=== PATIENT | female | born 2000 | race Caucasian/White ===

== ENCOUNTER 2025-05-24 13:01 | Outpatient (AMB) | payer MEDICAID, SELFPAY ==
--- NOTE | 2025-05-24 13:10 | AMB.OBINITIA ---
Vital Signs 05/24/25 13:11 Height 1.52 m Height Method Stated Weight 62.142 kg Weight Measurement Method Standing Scale BMI 26.7 BP 110/66 Blood Pressure Source Automatic Cuff Blood Pressure Location Right Upper Arm Position Sitting Respiration 18 Pulse 81 Pulse Source Monitor Temp 97.6 F Temp Source Temporal Artery Scan Pulse Oximetry (%) 98 Oxygen Delivery Method Room Air Allergies/Home Meds Allergies & Medications Allergies No Known Allergies Allergy (Verified 05/24/25 13:12) Medication Reconciliation No Known Home Medications 05/24/25 [History Confirmed 05/24/25] Intake Visit Data Collection New Patient or Established: New Patient (never been to [facility]) Reason for Visit:: OBI TRANSFER Seen by Clinical Staff ONLY (RN/MA): No Patient Resource Coordinator Required: No Do You Feel Safe at Home: Yes Authorities Contacted: N/A PCP or OBGYN visit in last 3 months: Yes Hx Now: Yes Are you currently on any form of Control: No Last menstrual period: 10/23/24 Pain Present Currently: No Pain Scale Used: Martin-Vincent/Numerical Pain scale:: 0 Smoking Status Smoking Status: Never smoker Immunizations Flu Vaccine in the Last 12 Months: No Flu Vaccine Exclusion Criteria: No Exclusion Criteria Questionnaires Covid-19 Vaccine Questionnaire Has patient been vacinated for Covid-19 Have you been vacinated for Covid-19: No PHQ-9 PHQ-2 Over the last 2 weeks, how often have you been bothered by any of the following problems? 1. Little interest or pleasure in doing things: not at all 2. Feeling down, depressed, or hopeless: not at all Total score: 0 PHQ-9 3. Trouble falling or staying asleep, or sleeping too much: Not at all 4. Feeling tired or having little energy: Not at all 5. Poor appetite or overeating: Not at all 6. Feeling bad about yourself - or that you are a failure or have let yourself or your family down: Not at all 7. Trouble concentrating on things, such as reading the newspaper or watching television: Not at all 8. Moving or speaking so slowly that other people could have noticed? - Or the opposite - being so fidgety or restless that you have been moving around a lot more than usual: not at all 9. Thoughts that you would be better off or of hurting yourself in some way: Not at all Total score: 0 If you checked off any problems, how difficult have these problems made it for you to do your work, take care of things at home, or get along with other people?: not difficult at all Source: Developed by Drs. Lui De Guzman, Jhoana Blake, Minesh Diallo and colleagues, with an educational maritza from [employer]. Depression screen completed yes Social History Living Situation History Marital Status: Lives With: Family Housing: House Tobacco History Smoking Status: Never smoker Second Hand Smoke Exposure: No Alcohol History Alcohol Intake: Never Domestic Abuse History Do You Feel Safe at Home: Yes History of Present Illness HPI Narrative 24-year-old 1 para 0. Here for OB I/ob transfer from Dr Lopez with records. Last. Close October 23, 2024. This gives the EDC by LMP of July 30, 2024. Patient had a 10-week ultrasound December 07, 2024 and this gives her EDC of June 29, 2025. And then patient also had a 22-week anatomy scan in December and thus also confirm dates. Denies social habits. Denies surgery. Denies chronic illness. Patient is O+, antibody screen negative, RPR nonreactive,, hepatitis B negative, hep C negative, HIV negative, her GC and Chlamydia were negative. Her AFP/NIPT and carrier screens were all negative. She had a normal 1 hour GTT and her RPR at 28 weeks was also negative. A1c is 5.1. Patient is a little bit anemic at 34 so she is taking iron. Reports movement. Denies leaking or bleeding or cramps OB Initial Visit OB Flowsheet OB Flowsheet Initial Weight: Not Recorded Date <del>?</del> EGA Weight BP Alb Glu CTX Pres Fundal ht FHR Mov Dilation Station Effacement Hx Notes Visit Note 05/24/25 <del>?</del> 34w 3d 62.142 kg 110/66 absent cephalic 34 145 active OB transfer from Dr Lopez with records. poor date. EDC 06/29/25 by 10 week sono. OB labs wnl, No GDM. Reports good movement. Denies leaking, bleeding, contractions Menstrual History Menstrual reliability: definite Flow: normal Menstrual regularity: regular Monthly: Yes Age at menarche: 13 On control pills at conception: No OB History : 1 Infection History & Risk Evaluation History of STDs: none Patient or partner has history of Genital Herpes: No Genetic Screening & History Genetic Screening/Teratology Counseling - Includes patient, baby's father, or anyone in either family with: 1. Patient's age 35 years or older as of estimated date of delivery: No 2. Thalassemia (Chinese, Anguillan, Mediterranean, or Background); MCV less than 80: No 3. Neural Tube Defect (Meningomyelocele, Spina Bifida, or Anencephaly): No 4. Congenital Heart Defect: No 5. Down Syndrome: No 6. Zan-Sachs (Ashkenazi Amish, Cajun, Citizen Of The [place] Afghan): No 7. Adria Disease (Ashkenazi Amish): No 8. Familial Dysautonomia (Ashkenazi Amish): No 9. Sickle Cell Disease or Trait (): No 10. Hemophilia or other blood disorders: No 11. Muscular Dystrophy: No 12. Cystic Fibrosis: No 13. [place]'s Chorea: No 14. Mental Retardation/Autism: No 15. Other inherited genetic or chromosomal disorder: No 16. Maternal Metabolic Disorder (EG,TYPE 1 Diabetes, PKU): No 17. Patient or baby's father had a child with defects not listed above: No 18. Recurrent loss or a stillbirth: No 19. Medications (including supplements, vitamins, herbs or otc drugs)/illicit/recreational drugs/alcohol since last menstrual period: No 20. Any other: No Infection History 1. Live with someone with TB or exposed to TB: No Other (see comments) Source: [employer] Review of Systems Review of Systems Systems Reviewed: All systems reviewed, normal except as documented Exam General Limitations: no limitations General Appearance: alert, in no apparent distress, comfortable, cooperative, healthy appearing, well developed and well groomed Head Head exam: atraumatic, normocephalic and normal inspection Chest Chest inspection: Present normal inspection and symmetric chest wall rise Resp Respiratory exam: Present normal lung sounds bilaterally Card Cardiovascular exam: Present regular rate, normal rhythm and normal heart sounds Abdominal Abdominal exam: Present soft and normal bowel sounds Psych Psychiatric exam: Present normal affect and normal mood Office Procedures OBC Clinic LOC & Office Proc's Nursing/Assessment Patient Status: Initial/New Patient OB Clinic Nursing Assessment: Medication Reconciliation, Update PMH in EMR and Vital Signs OB Clinic Coordination of Care: Complex Care and Chronic Disease 1-5, Education Complex Pt/Fam, Consent,records obtained, informed consent, Lab and Imaging orders, Results/Orders obtained and Staff clarify orders Special Needs: Heart tones New Patient Charge New Patient Point Assignment: [id number] New Patient Point Charge: DRIP MOLDER Level 4 ([id number]) Assessment & Plan Diagnosis / Problem List (1) Encounter for supervision of high risk in third trimester, antepartum: Status: Acute Plan Reviewed labs and sono today. Discussed labor precautions. Continue prenatals. Increase fluids. GBS next visit. Return in 2 weeks OB check Additional Plan Follow Up: 2 Weeks (obc)
[2025-05-24 13:11] VITALS: BP 110/66; PULSE 81; RESP 18; TEMP 36.4; O2SAT 98; BMI 26.7
== END 2025-05-24 13:22 | disposition home or self-care (01) ==
LOC: HODSOBC 13:01
PROVIDERS: PCP Family Medicine; Referring Provider Family Medicine; Supervising Provider Advanced Practice Midwife; Visit Provider Advanced Practice Midwife
DX: O09.93 Supervision of high risk pregnancy, unspecified, third trimester (principal); Z3A.34 34 weeks gestation of pregnancy
CPT/HCPCS: 99204; G0463

== ENCOUNTER 2025-06-05 14:18 | Outpatient (AMB) | payer MEDICAID, SELFPAY ==
--- NOTE | 2025-06-05 14:24 | OBCLNT_ITS ---
Vital Signs 06/05/25 14:25 Height 1.52 m Height Method Stated Weight 62.823 kg Weight Measurement Method Standing Scale BMI 27.1 BP 118/68 Blood Pressure Source Automatic Cuff Blood Pressure Location Left Upper Arm Position Sitting Respiration 18 Pulse 94 Pulse Source Monitor Temp 97.7 F Temp Source Oral Pulse Oximetry (%) 98 Oxygen Delivery Method Room Air Allergies/Home Meds Allergies & Medications Allergies No Known Allergies Allergy (Verified 06/05/25 14:30) Medication Reconciliation ferrous sulfate 325 mg (65 mg iron) tablet 325 mg PO BID #60 tabs 06/05/25 [Rx] vitamins-iron fumarate 66 mg iron-folic acid 1 mg tablet tab PO 06/05/25 [History Confirmed 06/05/25] Immunizations Immunizations Flu Vaccine in the Last 12 Months: No Flu Vaccine Exclusion Criteria: Refused by Patient Care OB Visit Log OB Flowsheet Initial Weight: Not Recorded Date -?-?-?-?-?-?-?-?-?-?-?-?- EGA Weight BP Alb Glu CTX Pres Fundal ht FHR Mov Dilation Station Effacement Hx Notes Visit Note 05/24/25 -?-?-?-?-?-?-?-?-?-?-?-?- 34w 3d 62.142 kg 110/66 absent cephalic 34 145 active OB transfer from Dr Lopez with records. poor date. EDC 06/29/25 by 10 week sono. OB labs wnl, No GDM. Reports good movement. Denies leaking, bleeding, contractions 06/05/25 -?-?-?-?-?-?-?-?-?-?-?-?- 36w 1d 62.823 kg 118/68 absent cephalic 36 145 active Reports good movement. Denies leaking, bleeding, contractions. No OB complaints GBS today. Refilled iron. Discussed labor precautions. Kick count twice a day. Discussed danger signs and symptoms return to [facility] check JONI Calculator Estimated Delivery Date Method Current WG Current Estimate 07/02/25 Ultrasound #1 36w 1d Other Estimates 07/30/25 LMP (Certain) 32w 1d 07/03/25 Ultrasound #2 36w 0d 07/02/25 Manual 36w 1d final joni: 06/06 02/27 Notes Visit Date: 05/24/25 Last Updated by: Reba Kang CNM OB panel: O+,abs-, rpr;;nr, rub imm, hbsag-, hiv-,HC-, GC/CT-, 1 hr gtt: 111, AFP/NIPT,carrier screen-, 3rd tri lab wnl 24 yo . sono: 12/07/24: 10w3; EDC: 06/29/25 Office Procedures OBC Clinic LOC & Office Proc's Nursing/Assessment Patient Status: Established Patient OB Clinic Nursing Assessment: Medication Reconciliation, Update PMH in EMR and Vital Signs OB Clinic Coordination of Care: Complex Care and Chronic Disease 1-5, Consent,records obtained, informed consent, Education Simp Pt/Fam, 1 Ins Authorization, Lab and Imaging orders, Results/Orders obtained and Staff clarify orders Special Needs: Heart tones Miscellaneous Interventions: Culture Specimen Collection Established Patient Charge Established Patient Point Assignment: 165 Established Patient Point Charge: EP Level 5 (160-above) Assessment & Plan Diagnosis / Problem List (1) Encounter for supervision of high risk in third trimester, antepartum: Status: Acute Plan Discussed labor precautions. Kick count twice a day. Discussed ER precautions. GBS today Additional Plan Follow Up: 1 Week (obc)
[2025-06-05 14:25] VITALS: BP 118/68; PULSE 94; RESP 18; TEMP 36.5; O2SAT 98; BMI 27.1
== END 2025-06-05 14:58 | disposition home or self-care (01) ==
LOC: HODSOBC 14:18
PROVIDERS: Supervising Provider Advanced Practice Midwife; Visit Provider Advanced Practice Midwife
DX: O09.93 Supervision of high risk pregnancy, unspecified, third trimester (principal); Z3A.36 36 weeks gestation of pregnancy; Z36.85 Encounter for antenatal screening for Streptococcus B; Z28.21 Immunization not carried out because of patient refusal
CPT/HCPCS: 99215; G0463

== ENCOUNTER 2025-06-16 13:48 | Outpatient (AMB) | payer MEDICAID, SELFPAY ==
[2025-06-16 14:07] VITALS: BP 113/67; PULSE 83; RESP 16; TEMP 36.5; O2SAT 96; BMI 27.8
--- NOTE | 2025-06-16 14:07 | OBCLNT_ITS ---
Vital Signs 06/16/25 14:07 Height 1.52 m Height Method Stated Weight 64.467 kg Weight Measurement Method Standing Scale BMI 27.8 BP 113/67 Blood Pressure Source Automatic Cuff Blood Pressure Location Left Upper Arm Position Sitting Respiration 16 Pulse 83 Pulse Source Monitor Temp 97.7 F Temp Source Oral Pulse Oximetry (%) 96 Oxygen Delivery Method Room Air Allergies/Home Meds Allergies & Medications Allergies No Known Allergies Allergy (Verified 06/16/25 14:08) Medication Reconciliation ferrous sulfate 325 mg (65 mg iron) tablet 325 mg PO BID #60 tabs 06/05/25 [Rx Confirmed 06/16/25] vitamins-iron fumarate 66 mg iron-folic acid 1 mg tablet tab PO 06/05/25 [History Confirmed 06/16/25] Immunizations Immunizations Flu Vaccine in the Last 12 Months: Yes Flu Vaccine Exclusion Criteria: Refused by Patient Care OB Visit Log OB Flowsheet Initial Weight: Not Recorded Date -?-?-?-?-?-?-?-?-?-?-?-?- EGA Weight BP Alb Glu CTX Pres Fundal ht FHR Mov Dilation Station Effacement Hx Notes Visit Note 05/24/25 -?-?-?-?-?-?-?-?-?-?-?-?- 34w 3d 62.142 kg 110/66 absent cephalic 34 145 active OB transfer from Dr Lopez with records. poor date. EDC 06/29/25 by 10 week sono. OB labs wnl, No GDM. Reports good movement. Denies leaking, bleeding, contractions 06/05/25 -?-?-?-?-?-?-?-?-?-?-?-?- 36w 1d 62.823 kg 118/68 absent cephalic 36 145 active Reports good movement. Denies leaking, bleeding, contractions. No OB complaints GBS today. Refilled iron. Discussed labor precautions. Kick count twice a day. Discussed danger signs and symptoms return to [facility] check 06/16/25 -?-?-?-?-?-?-?-?-?-?-?-?- 37w 5d 64.467 kg 113/67 absent cephalic 37 135 active Fetus active. Reports good movement. Denies leaking, bleeding, contractions GBS negative. Continue iron twice a day. Kick count twice a day. Discussed labor precautions to return in a week OB check JONI Calculator Estimated Delivery Date Method Current WG Current Estimate 07/02/25 Ultrasound #1 37w 5d Other Estimates 07/30/25 LMP (Certain) 33w 5d 07/03/25 Ultrasound #2 37w 4d 07/02/25 Manual 37w 5d final joni: 06/06 02/27 Notes Visit Date: 06/16/25 Last Updated by: Reba Kang CNM GBS- Visit Date: 05/24/25 Last Updated by: Reba Kang CNM OB panel: O+,abs-, rpr;;nr, rub imm, hbsag-, hiv-,HC-, GC/CT-, 1 hr gtt: 111, AFP/NIPT,carrier screen-, 3rd tri lab wnl 24 yo . sono: 12/07/24: 10w3; EDC: 06/29/25 Office Procedures OBC Clinic LOC & Office Proc's Nursing/Assessment Patient Status: Established Patient OB Clinic Nursing Assessment: Medication Reconciliation, Update PMH in EMR and Vital Signs OB Clinic Coordination of Care: Complex Care and Chronic Disease 1-5, Consent,records obtained, informed consent, Education Simp Pt/Fam, 1 Ins Authorization, Lab and Imaging orders, Results/Orders obtained and Staff clarify orders Special Needs: Heart tones Established Patient Charge Established Patient Point Assignment: 150 Established Patient Point Charge: EP Level 4 (120-155) Assessment & Plan Diagnosis / Problem List (1) Encounter for supervision of high risk in third trimester, antepartum: Status: Acute Plan Discussed kick count twice a day. GBS is negative. Continue prenatals and iron. Increase fluids. Discussed labor precautions. Return week OB check Additional Plan Follow Up: 1 Week (obc)
== END 2025-06-16 14:50 | disposition home or self-care (01) ==
LOC: HODSOBC 13:48
PROVIDERS: Supervising Provider Advanced Practice Midwife; Visit Provider Advanced Practice Midwife
DX: O09.93 Supervision of high risk pregnancy, unspecified, third trimester (principal); Z3A.37 37 weeks gestation of pregnancy; Z28.21 Immunization not carried out because of patient refusal
CPT/HCPCS: 99214; G0463

== ENCOUNTER 2025-06-29 09:35 | Inpatient (IN) | payer MEDICAID, SELFPAY ==
[2025-06-29] VITALS (97 sets, daily range): BP systolic 100–166; BP diastolic 47–77; PULSE 63–125; RESP 18–99; TEMP 36.3–37.9; O2SAT 92–100; BMI 28.2
--- NOTE | 2025-06-29 09:53 | XR_ITS ---
Examination: Complete OB ultrasound greater than 14 weeks Date and time of exam: June 29, 2025, 1050 hours INDICATION: Leaking amniotic fluid today Findings: Viable intrauterine single fetus with single amniotic sac presentation cephalic Cardiac motion 133 bpm Placenta anterior grade 3 Medical cord insertion seen Amniotic fluid index 17.8 cm Ovaries obscured by bowel gas. Composite estimated gestational age based on BPD, head circumference, abdominal circumference, femur length is 38 weeks 0 days Estimated weight 3389 g. Survey of intracranial anatomy, spinal anatomy, abdominal anatomy, four-chamber heart performed with no abnormalities identified. Impression: Viable intrauterine gestation cephalic presentation.
[2025-06-29 10:28] LABS: Swb Mxed in Solvent 1 min? Yes
[2025-06-29 10:29] LABS: ROM Swab Mixed By: LOPEC2; Rupture of Fetal Membranes Positive (Negative)
[2025-06-29 12:53] LABS: Basophils # (Auto) 0.1 Thou/mm3 (0.0-0.2); Basophils % (Auto) 1 % (0-2.5); Eosinophils # (Auto) 0.0 Thou/mm3 (0.0-0.5); Eosinophils % (Auto) 1 % (0-10); Hematocrit 37.3 % (36.0-46.0); Hemoglobin 12.7 g/dL (12.0-16.0); Immature Granulocytes Auto 0.33 Thou/mm3 (0.00-0.00); Lymphocytes # (Auto) 1.2 Thou/mm3 (1.0-4.8); Lymphocytes % (Auto) 16 % (10-50); Mean Corpuscular HGB Conc 34.0 g/dl (31.0-37.0); Mean Corpuscular Hemoglobin 31.0 pg (25.0-35.0); Mean Corpuscular Volume 91 fL (80-100); Monocytes # (Auto) 0.5 Thou/mm3 (0.0-0.8); Monocytes % (Auto) 7 % (0-12); Neutrophils # (Auto) 5.6 Thou/mm3 (1.8-7.7); Neutrophils % (Auto) 72 % (37-80); Nucleated Red Blood Cell # 0.00 Thou/mm3 (0.00-0.00); Nucleated Red Blood Cell % 0 /100 WBC (0); Platelet Count 218 Thou/mm3 (140-440); RDW Standard Deviation 43.5 fL (36.4-46.3); Red Blood Count 4.10 Miln/mm3 (4.00-5.20); White Blood Count 7.7 Thou/mm3 (3.6-11.0)
[2025-06-29] MEDS: RINGERS LACTATED 1000 ML 1,000 ML 100 ML IV ×3 (13:07→21:45)
[2025-06-29 13:30] LABS: Syphilis Nonreactive (Nonreactive)
--- NOTE | 2025-06-29 15:56 | ESHP_ITS ---
Documentation for date of: 06/29/25 OB Labor/Induct. HPI History of Present Illness Chief complaint: Rupture of membranes : 1 Para: 0 Term pregnancies: 0 pregnancies: 0 Living children: 0 History of Abortions: Spontaneous and Elective: 0 History of Vaginal deliveries: 0 History of sections: No History of : No Date of last menstrual period: 09/22/24 JONI: 06/29/25 Gestational Age (weeks): 39 Gestational Age (days): 4 Gestational age based on last menstrual period: 40 History of present illness: 25-year-old 1 para 0 at 39 weeks and 4 days with estimated due date of 07/02/2025 which is based on first trimester ultrasound presented to labor and delivery triage with leakage of fluid and contractions. She was noted to be AmniSure positive and was admitted with a diagnosis of spontaneous rupture of membranes. Patient reports adequate movements and denies any leakage of fluid or vaginal bleeding. She received care at the [facility] clinic and prior to that she used to see Dr. Lopez from where she transferred care records were reviewed as scanned in. History of Present Adequate Care: Yes Labs Labs: Positive: Rubella Titre, Negative: RPR, Hepatitis B, HIV and Gonorrhea and Unknown: Herpes Type 1, Herpes Type 2, Group Beta Strep and Covid- 19 Past Medical History Surgical History SURGICAL: Negative Section Meds Home Medications and Allergies Home Medications ?Medication ?Instructions ?Recorded ?Confirmed ?Type vitamins-iron fumarate 66 1 tab PO QDAY 06/0506/29/25 History mg iron-folic acid 1 mg tablet Allergies Allergy/AdvReac Type Severity Reaction Status Date / Time No Known Allergies Allergy Verified 06/29/25 09:54 OB Exam Physical Exam Vital signs: Temp Pulse Resp BP Pulse Ox O2 Del Method 97.4 F 88 20 117/54 L 100 Room Air 06/29/25 13:08 06/29/25 15:27 06/29/25 13:08 06/29/25 15:27 06/29/25 11:12 06/29/25 13:08 Constitutional Constitutional: no acute distress Routine HEENT Exam Head: Present normocephalic and atraumatic Eye: Present EOMI and PERRL ENT: Present mucous membranes moist Routine Neck Exam Neck: Present supple and trachea midline Routine Cardiovascular Exam Cardiovascular: Present RRR Routine Abdominal Exam Abdominal: Present soft and normoactive bowel sounds Detailed Labor and Delivery Exam Dilation (cm): 3 Effacement (%): 50 Cervix position: mid station: -3 Consistency: firm Presentation: Vertex Baseline heart rate: 145 monitor accelerations: 15x15 monitor decelerations: None Routine Extremities Exam Extremities: Present full ROM Routine Skin Exam Skin: Present intact, dry and warm Routine Neurological Exam Neurological: Present alert, oriented X3 and CN II-XII intact Routine Psychiatric Exam Psychiatric: Present normal affect and normal thought process OB Results Labs 06/29/25 11:20 Labs: Short CBC 06/29/25 Range/Units 11:20 WBC 7.7 (3.6-11.0) Thou/mm3 Hgb 12.7 (12.0-16.0) g/dL Hct 37.3 (36.0-46.0) % Plt Count 218 (140-440) Thou/mm3 OB Assessment & Plan Assessment and Plan (1) Encounter for supervision of high risk in third trimester, antepartum: Status: Acute (2) Spontaneous rupture of membranes: Status: Acute Assessment and plan: Admit to inpatient status IV access, LR at 125 cc/h, CBC, type and screen, RPR Group B strep negative Additional forebag ruptured and internal monitors/IUPC placed Cervical ripening with misoprostol, will proceed to oxytocin when Paredes score is favorable Continuous maternal monitoring Epidural whenever desired Anticipate vaginal delivery
[2025-06-29] MEDS: Ampicillin Inj 2,000 MG in SODIUM CHLORIDE 0.9% (POP) 100 ML 200 MG IV (22:08)
[2025-06-29] MEDS: OXYTOCIN in NS 30 units 30 UNIT/500 ML BAG IV (22:42)
[2025-06-29] MEDS: GENTAMICIN/NS 80 MG IVPB 80 MG in PRE-MIXED 1 BAG 50 MG IV (22:45)
[2025-06-29] MEDS: ACETAMINOPHEN IVPB 1,000 MG/100 ML VIAL 250 MG IV (23:51)
[2025-06-30] VITALS (167 sets, daily range): BP systolic 95–137; BP diastolic 50–100; PULSE 65–151; RESP 16–20; TEMP 36.7–37.9; O2SAT 90–100
[2025-06-30] MEDS: fentaNYL CIT INJ 50 mCg/ML AMP 2ML 100 MCG IVP (00:33)
[2025-06-30] MEDS: ACETAMINOPHEN IVPB 1,000 MG/100 ML VIAL 250 MG IV (04:57)
[2025-06-30] MEDS: Ampicillin Inj 2,000 MG in SODIUM CHLORIDE 0.9% (POP) 100 ML 200 MG IV (05:18)
[2025-06-30] MEDS: RINGERS LACTATED 1000 ML 1,000 ML 100 ML IV (05:24)
[2025-06-30] MEDS: MINERAL OIL 30 ML UDC TOP (07:17)
[2025-06-30] MEDS: OXYTOCIN in NS 20 units 20 UNIT/1,000 ML BAG 125 UNIT IV (07:37)
[2025-06-30] MEDS: BENZO/LANO/ALOE (Dermoplast) 60 GM CAN 1 SPRAY TOP (07:44)
[2025-06-30] MEDS: IBUPROFEN TAB 400 MG TABLET 800 MG PO (08:46)
[2025-06-30] MEDS: ceFAZolin/D5W 2 GM IV 2 GM/100 ML BAG IV ×2 (08:47→16:21)
--- NOTE | 2025-06-30 10:08 | OBDSUM_ITS ---
Data ([place]) Data Hx Section: No Maternal Blood Type: O Pos Rubella Titre: Positive RPR: Non-reactive Labs: Negative: RPR, Hepatitis B, HIV, Chlamydia, Gonorrhea and Group Beta Strep : 1 Term: 0 : 0 Livin Abortions: Spontaneous & Theraputic: 0 Delivery Data ([place]) Labor Data Initiation of labor: Induction Induction/Augmentation Agent: Cytotec-PO and Pitocin ROM date: 06/29/25 ROM time: 09:00 Amniotic membrane rupture type: Spontaneous Amniotic fluid description: Clear Delivery Data EDC: 06/29/25 EDC calculated by:: LMP/early US confirmation Date of arrival to unit: 06/29/25 Onset of labor date: 06/30/25 Onset of labor time: 01:20 Complete dilation date: 06/30/25 Complete dilation time: 06:45 [place] delivery date: 06/30/25 [place] delivery time: 07:36 Gestational age (weeks): 40 Gestational age (days): 1 Placenta delivery date: 06/30/25 Placenta delivery time: 07:40 Stage 1 total time: Labor - Stage 1 Duration 5 hours and 25 minutes Delivered by: Maine Loya (OB Clinic) Delivery nurse: Hailee Barajas RN [facility] nurse: Bre Mckee RN Materials Analyst at delivery: No Support person(s) at delivery: FOB Other staff at delivery: Lacy Hargrove RN Delivery Method Delivery method: Normal Vaginal Delivery Presentation: Vertex position: OA Anesthesia Type Anesthesia Type: Epidural Delivery Room Medications Delivery room medications: Pitocin 20 u IV Placenta Placenta delivery description: Spontaneous Cord blood sent to lab: Yes cord blood collection: Cord Blood Type Episiotomy Episiotomy description: Midline Perineal repair Sutures used for repair: 4.0 Chromic and other (2-0 chromic) EBL Estimated blood loss (ml): 75 Umbilical Cord cord description: 3 Vessels and Nuchal Cord Additional Procedures The patient is a 25-year-old G1, P0 who presented to L and D with ruptured membranes the morning of 06/29/2025. She was induced with Cytotec and eventually Pitocin. She had an epidural placed in labor. She was signed out to me when she was pushing at 7 am on 06/30/2025. Of note, the patient had spiked a temperature of 100.3 degrees approximately 1 AM on 1226. Also of note, she was almost 24-hour ruptured when I took over her care. Dr Aviles had started her on ampicillin and gentamicin. The patient pushed approximately 35 minutes deliv ering a liveborn female at 0736. Findings: Liveborn female in the BEAR presentation with a loose nuchal cord x 1, no meconium. Apgars were 7 and 9. At delivery, the baby was placed on the mother's chest and delayed cord clamping performed for about a minute. As baby needed to be suctioned, the infant was handed off to the waiting pediatric staff who brought the baby to the warmer and suctioned the baby. The placenta was complete spontaneous grossly normal delivering approximately 4 minutes after the baby delivered. Patient had a midline episiotomy performed at delivery repaired in a standard fashion using 2- 0 chromic and 4-0 chromic. Complications were none. Condition: Both mom and infant were in stable condition in the delivery room. Complications Complications: None [place] Data ([place]) [place] Data order: 1 [place]'s gender: Female Identification band number: [id number] weight (gms): 3220 g Weight (pounds): 7 lbs and 1.6 ozs length: 49.53 cm 1 minute: 7 5 minutes: 9
[2025-06-30] MEDS: DOCUSATE SOD 100 MG CAPSULE PO (21:24)
[2025-07-01 03:40] VITALS: BP 103/62; PULSE 82; RESP 18; TEMP 37.1; O2SAT 98
[2025-07-01] MEDS: IBUPROFEN TAB 400 MG TABLET 800 MG PO (03:48)
[2025-07-01 05:58] LABS: Basophils # (Auto) 0.0 Thou/mm3 (0.0-0.2); Basophils % (Auto) 0 % (0-2.5); Eosinophils # (Auto) 0.1 Thou/mm3 (0.0-0.5); Eosinophils % (Auto) 1 % (0-10); Hematocrit 27.5 % (36.0-46.0); Hemoglobin 9.3 g/dL (12.0-16.0); Immature Granulocytes Auto 0.18 Thou/mm3 (0.00-0.00); Lymphocytes # (Auto) 2.1 Thou/mm3 (1.0-4.8); Lymphocytes % (Auto) 14 % (10-50); Mean Corpuscular HGB Conc 33.8 g/dl (31.0-37.0); Mean Corpuscular Hemoglobin 31.0 pg (25.0-35.0); Mean Corpuscular Volume 92 fL (80-100); Monocytes # (Auto) 0.7 Thou/mm3 (0.0-0.8); Monocytes % (Auto) 4 % (0-12); Neutrophils # (Auto) 12.3 Thou/mm3 (1.8-7.7); Neutrophils % (Auto) 80 % (37-80); Nucleated Red Blood Cell # 0.00 Thou/mm3 (0.00-0.00); Nucleated Red Blood Cell % 0 /100 WBC (0); Platelet Count 184 Thou/mm3 (140-440); RDW Standard Deviation 45.1 fL (36.4-46.3); Red Blood Count 3.00 Miln/mm3 (4.00-5.20); White Blood Count 15.4 Thou/mm3 (3.6-11.0)
--- NOTE | 2025-07-01 07:10 | ESPR_ITS ---
Subjective Subjective Interval history: Patient is a 25-year-old -0-0-1 day #1 status post vaginal delivery 06/30/2025 around 9:00 in the morning. Patient is doing well postdelivery. She denies heavy bleeding. She is ambulating and voiding. Her pain is controlled with oral pain medications. She is ready to for discharge later today. She had one temperature in labor to 100.3 degrees and has been afebrile more than 24 hours. She received ampicillin x 2 and gent x 1 in labor and Ancef . This morning her white blood count is 15 with 80% neutrophils. Exam Vital Signs Temp Pulse Resp BP Pulse Ox O2 Del Method 98.7 F 82 18 103/62 98 Room Air 07/01/25 03:40 07/01/25 03:40 07/01/25 03:40 07/01/25 03:40 07/01/25 03:40 07/01/25 03:40 Narrative Exam Patient is alert and orient x 3 in no apparent distress. Fundus is firm at umbilicus, extremities show no significant edema or erythema Objective Labs 07/01/25 05:34 Labs: Laboratory Results - last 24 hr 07/01/25 05:34 WBC 15.4 H D RBC 3.00 L Hgb 9.3 L D Hct 27.5 L MCV 92 MCH 31.0 MCHC 33.8 RDW Std Deviation 45.1 Plt Count 184 D Neut % (Auto) 80 Lymph % (Auto) 14 [place] % (Auto) 4 Eos % (Auto) 1 Baso % (Auto) 0 Neut # (Auto) 12.3 H Lymph # (Auto) 2.1 [place] # (Auto) 0.7 Eos # (Auto) 0.1 Baso # (Auto) 0.0 Immature Gran # (Auto) 0.18 H Absolute Nucleated RBC 0.00 Immature Gran % 1 H Nucleated RBC % 0 Assessment & Plan Problem List (1) care following vaginal delivery: Problem details: Discharge home day #1 in stable condition. Discharge instructions include pelvic rest x 6 weeks. Status: Acute Time Spent With Patient Time: Total time spent is greater than 50% in coordination of care (as documented) at patient's floor/unit and/or counseling patient: Time with patient: less than 15 minutes
[2025-07-01 08:00] VITALS: BP 113/62; PULSE 90; RESP 18; TEMP 36.5; O2SAT 98
[2025-07-01] MEDS: DOCUSATE SOD 100 MG CAPSULE PO (08:51)
[2025-07-01] MEDS: ceFAZolin/D5W 2 GM IV 2 GM/100 ML BAG IV ×2 (08:51)
--- NOTE | 2025-07-01 10:15 | PD.LDDS ---
DS: Providers Provider Date of admission: 06/29/25 10:38 Primary care physician: Physician No Primary/Family Admitting Provider: Marco Aviles MD Attending Provider on Admission: Marco Aviles MD Consults: 06/30/25 09:29 Referral Routine Comment: Attending Provider on DC: [place] Loya MD ([facility]) Discharging Provider: Maine Loya MD ([facility]) Anticipated date of discharge: 07/01/25 DS: Diagnosis Discharge Diagnosis (1) care following vaginal delivery: Status: Acute Assessment & Plan: Discharge instructions given. Return to clinic in 4 weeks. Problem List Completed Was Problem List Reviewed/Reconciled?: Yes Summary/Hosp Course Brief History: 25-year-old 1 para 0 at 39 weeks and 4 days with estimated due date of 07/02/2025 which is based on first trimester ultrasound presented to labor and delivery triage with leakage of fluid and contractions. She was noted to be AmniSure positive and was admitted with a diagnosis of spontaneous rupture of membranes. Patient reports adequate movements and denies any leakage of fluid or vaginal bleeding. She received care at the [facility] and prior to that she used to see Dr. Lopez from where she transferred care records were reviewed as scanned in. The patient was admitted 06/29/[address] Aviles. Please see history and physical for further details. Hospital course: Patient underwent an uncomplicated vaginal delivery around 7:30 in the morning on 06/30/2025. She had a fever during labor and Dr Aviles started ampicillin and gentamicin. Please see delivery notes for further details. Peripartum Data Delivery Method: Normal Vaginal Delivery Episiotomy Description: Midline Laceration Description: see Delivery Summary complications: none Status at Discharge Cognitive/behavioral status at discharge: Patient is alert and orient x 3 in no apparent distress. She is Albanian-speaking only and her entire interview and physical exam was conducted with Hailee labor and delivery supervisor at bedside. Functional status at discharge: independent ambulation Overall status at discharge: patient is progressing back to baseline Time Spent with Patient Time attestation: Total time spent providing and/or coordinating discharge services: Time spent: Less than 30 minutes Specific discharge activities: Pelvic rest x 6 weeks Exam Vital Signs Temp Pulse Resp BP Pulse Ox O2 Del Method 97.7 F 90 18 113/62 98 Room Air 07/01/25 08:00 07/01/25 08:00 07/01/25 08:00 07/01/25 08:00 07/01/25 08:00 07/01/25 08:00 Narrative Exam Patient is alert and oriented x 3 in no apparent distress. She is breast and bottlefeeding. She denies heavy bleeding or fevers or chills. Discharge Plan Plan Patient Disposition: HOME (Self Care) Disposition Comment: Stable Patient condition on transfer: Stable Prescriptions/Referrals Prescriptions/Med Rec: New acetaminophen 325 mg Tablet 650 mg PO Q4H PRN (Reason: See Comments) Qty: 30 0RF ibuprofen 400 mg Tablet 800 mg PO Q8H PRN (Reason: See Comments) Qty: 30 0RF docusate sodium 100 mg Capsule 100 mg PO BID Qty: 30 0RF Continued ferrous sulfate 325 mg (65 mg iron) tablet 325 mg PO BID Qty: 60 2RF Discontinued vit-iron fum-folic ac 66 mg iron- 1 mg tablet 1 tab PO QDAY Referrals: No Primary/Family,Physician [Primary Care Provider] Patient/Caregiver Discharge Instructions Discharge Activity: activity as tolerated Other Discharge Activity Instructions:: Rest x 6 weeks Other Discharge Diet Instructions: High iron diet Education Materials: After Delivery [place] Concerns, Breast Care After , : Caring for Yourself, Feel Healthy After Print Language: Albanian Activity Restrictions/Additional Instructions: No intercourse tampons douching or bathtubs x 6 weeks. Call with fevers, heavy bleeding or depression Stand Alone Forms: Kisha Award Info., Patient Portal Info Letter Discharge Order Discharge Orders: Discharge (Routine); Ordered 07/01/25 Ordered By: Maine Loya ([facility]) Planned Discharge Date 07/01/25
== END 2025-07-01 14:15 | disposition home or self-care (01) | DRG 560 ==
LOC: S4SX 06-30 08:01 → S4NX 06-30 09:48
PROVIDERS: Obstetrics & Gynecology; Admitting Provider Obstetrics & Gynecology; Visit Provider Obstetrics & Gynecology
DX: O69.81X0 Labor and delivery complicated by cord around neck, without compression, not applicable or unspecified (principal); Z37.0 Single live birth; Z3A.39 39 weeks gestation of pregnancy; O75.2 Pyrexia during labor, not elsewhere classified
CPT/HCPCS: 36415; 59025; 76805; 84112; 85025; 86780; 86850; 86900; 86901; J0131; J0290; J0689; J1580; J2590; J2795; J3010; J7120; A9270